=== PATIENT | female | born 1995 | race Caucasian/White ===

== ENCOUNTER 2018-10-11 06:18 | Emergency (ER) | payer OTHER ==
[~2018-10-11] VITALS: Ht 157.5 cm; Wt 68.0 kg
[2018-10-11 06:25] VITALS: Ht 157.5 cm; Wt 68.0 kg
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
[2018-10-11] MEDS ORDERED: HALOPERIDOL 5 MG INJ IM STA (07:41)
[2018-10-11] MEDS ORDERED: OLANZAPINE 10 MG VIAL IM ONE (08:00)
[2018-10-11] MEDS ORDERED: LORAZEPAM 2 MG INJ ONE (08:20)
[2018-10-11] MEDS ORDERED: DIPHENHYDRAMINE 50 MG INJ ONE (08:22)
[2018-10-11] MEDS ORDERED: LORAZEPAM 2 MG INJ IM STA (08:24)
[2018-10-11] MEDS ORDERED: DIPHENHYDRAMINE 50 MG INJ IM ONE (08:30)
[2018-10-11] MEDS ORDERED: BACITRACIN 0.9 GM OINT TOP ONE (09:30)
[2018-10-11] MEDS ORDERED: SOD CHLORIDE 0.9% 1,000 ML IV STA (10:19)
[2018-10-11 13:21] VITALS: BP 129/83; PULSE 79; RESP 18
== END 2018-10-11 13:22 | disposition home or self-care (01) ==
LOC: E/R 06:18 → EEVIPCON 06:18 → E/R 13:22
DX: S20.312A Abrasion of left front wall of thorax, initial encounter (principal); S30.811A Abrasion of abdominal wall, initial encounter; S61.411A Laceration without foreign body of right hand, initial encounter; R40.2142 Coma scale, eyes open, spontaneous, at arrival to emergency department; R51 Headache; S61.216A Laceration without foreign body of right little finger without damage to nail, initial encounter; V42.5XXA Car driver injured in collision with two- or three-wheeled motor vehicle in traffic accident, initial encounter
CPT/HCPCS: 70450; 71045; 73130; 74177; 80053; 80307; 81025; 85025; 96372; J1200; J1630; J2060; J7030; Z7502